=== PATIENT | female | born 1955 | race Caucasian/White ===

== ENCOUNTER 2022-02-27 08:58 | Inpatient (IN) ==
--- NOTE | 2022-02-12 11:25 | PAT Medication Instructions ---
Medication Instructions Date of Service February 12, 2022 Home Medications acetaminophen 500 mg tablet 1,000 mg PO BID albuterol sulfate 90 mcg/actuation aerosol inhaler 2 puff INHALATION Q6H PRN ascorbic acid (vitamin C) 2,000 mg tablet,extended release 2,000 mg PO QAM aspirin 81 mg tablet,delayed release (Enteric Coated Aspirin) 81 mg PO QAM calcium carbonate 600 mg calcium (1,500 mg) tablet (Calcium) 1,200 mg PO QAM cholecalciferol (vitamin D3) 125 mcg (5,000 unit) tablet (Vitamin D3) 125 mcg PO QAM cyanocobalamin (vitamin B-12) 1,000 mcg tablet (Vitamin B-12) 1,000 mcg PO QAM ezetimibe 10 mg tablet 10 mg PO QAM fluticasone propionate 50 mcg/actuation nasal spray,suspension (Flonase Allergy Relief) 1 spray INTRANASAL QAM glucosamine sulf dipot chlr,msm,chond 550 mg-C 30 mg-kimberly 1 mg capsule (Glucosamine Chondroitin) 2 cap PO QAM ibandronate 150 mg tablet 150 mg PO MONTHLY lamotrigine 100 mg tablet 100 mg PO QPM lovastatin 40 mg tablet 40 mg PO PM magnesium oxide 400 mg PO QPM montelukast 10 mg tablet 10 mg PO QPM peg 400-propylene glycol (PF) 0.4 %-0.3 % eye drops in a dropperette (Systane (PF)) 1 drp OPHTHALMIC (EYE) BID PRN propranolol 20 mg tablet 20 mg PO QPM propranolol 20 mg tablet 40 mg PO QAM sodium chloride 0.65 % nasal spray aerosol ([place] Saline) 2 spray INTRANASAL DAILY PRN thiamine HCl (vitamin B1) 250 mg tablet (Vitamin B-1) 1,000 mg PO QAM trazodone 50 mg tablet 50 mg PO QPM venlafaxine 150 mg capsule,extended release 24 hr 150 mg PO QAM venlafaxine 75 mg capsule,extended release 24 hr 75 mg PO QAM Continue as directed ibandronate 150 mg tablet 150 mg PO MONTHLY (do not take day of surgery) ASK your prescriber and surgeon aspirin 81 mg tablet,delayed release (Enteric Coated Aspirin) 81 mg PO QAM STOP taking 2 weeks before surgery glucosamine sulf dipot chlr,msm,chond 550 mg-C 30 mg-kimberly 1 mg capsule (Glucosamine Chondroitin) 2 cap PO QAM DO NOT take the morning of surgery ascorbic acid (vitamin C) 2,000 mg tablet,extended release 2,000 mg PO QAM cholecalciferol (vitamin D3) 125 mcg (5,000 unit) tablet (Vitamin D3) 125 mcg PO QAM cyanocobalamin (vitamin B-12) 1,000 mcg tablet (Vitamin B-12) 1,000 mcg PO QAM calcium carbonate 600 mg calcium (1,500 mg) tablet (Calcium) 1,200 mg PO QAM thiamine HCl (vitamin B1) 250 mg tablet (Vitamin B-1) 1,000 mg PO QAM Take morning of surgery With a small sip of water, OTHERWISE NOTHING TO EAT OR DRINK AFTER MIDNIGHT: acetaminophen 500 mg tablet 1,000 mg PO BID(okay to take up to 4 hours prior to surgery if needed) albuterol sulfate 90 mcg/actuation aerosol inhaler 2 puff INHALATION Q6H PRN(use if needed; please bring with you to hospital day of surgery if possible) ezetimibe 10 mg tablet 10 mg PO QAM fluticasone propionate 50 mcg/actuation nasal spray,suspension (Flonase Allergy Relief) 1 spray INTRANASAL QAM peg 400-propylene glycol (PF) 0.4 %-0.3 % eye drops in a dropperette (Systane (PF)) 1 drp OPHTHALMIC (EYE) BID PRN(if needed) propranolol 20 mg tablet 40 mg PO QAM sodium chloride 0.65 % nasal spray aerosol ([place] Saline) 2 spray INTRANASAL DAILY PRN(if needed) venlafaxine 150 mg capsule,extended release 24 hr 150 mg PO QAM venlafaxine 75 mg capsule,extended release 24 hr 75 mg PO QAM Take evening before surgery acetaminophen 500 mg tablet 1,000 mg PO BID(if needed) albuterol sulfate 90 mcg/actuation aerosol inhaler 2 puff INHALATION Q6H PRN(if needed) lamotrigine 100 mg tablet 100 mg PO QPM lovastatin 40 mg tablet 40 mg PO PM magnesium oxide 400 mg PO QPM montelukast 10 mg tablet 10 mg PO QPM peg 400-propylene glycol (PF) 0.4 %-0.3 % eye drops in a dropperette (Systane (PF)) 1 drp OPHTHALMIC (EYE) BID PRN(if needed) propranolol 20 mg tablet 20 mg PO QPM trazodone 50 mg tablet 50 mg PO QPM Other Notes If you have any questions please call us at [phone] or [phone] or [phone] or [phone]
--- NOTE | 2022-02-14 13:50 | Anesthesiology Consultation ---
Date of Service February 14, 2022 Assessment & Plan (1) Encounter for pre-operative examination: - awaiting confirmed EKG. - Pt and daughter report upcoming PCP pre-op appt, 02/22/22. Optimization note completed regarding new dyspnea on exertion, abnormal CXR and hx chronic intermittent involuntary lower extremity movements. Awaiting PCP response. - will attempt to obtain nuclear findings on 2015 stress test. - sister with anesthesia complications-no additional details of complications recalled by pt. She plans to see if other family members recall any details. - COVID screening: Per assessment on 02/14/2022: Travel screen negative, no known COVID-19 positive contacts or current COVID-19 related symptoms in past 2 weeks. Surgeon arranging preop COVID testing, scheduled 02/23/2022. Awaiting results. Chart Review Chart Review: Pending: Refer to Additional Notes / Consult section and Patient seen in Pre Admission Testing Teaching & Discussion Pre-Anesthesia Teaching/Discussion Notes: Instructed NPO after midnight before surgery, except medications with 15 cc of water. Medication instructions provided according to the PAT guidelines. History Surgery Operation Date: 02/27/22 12:25 Proposed Procedures p L4-S1 Decompression and Fusion, Spinal Cord Monitoring - Margarito Aldridge, Height/Weight Height: 5 ft 2.5 in Weight: 81 kg Allergies Allergy/AdvReac Type Severity Reaction Status Date / Time amoxicillin [From Augmentin] Allergy Unknown Unknown Verified 02/09/22 14:39 clavulanic acid Allergy Unknown Unknown Verified 02/09/22 14:39 [From Augmentin] aspirin AdvReac Mild abdominal Verified 02/09/22 14:39 discomfort Medications Home Medications Medication Instructions Recorded Confirmed Last Taken acetaminophen 500 mg tablet 1,000 mg PO BID 02/09/22 02/09/22 Unknown albuterol sulfate 90 mcg/actuation 2 puff INHALATION Q6H PRN 02/09/22 02/09/22 Unknown aerosol inhaler ascorbic acid (vitamin C) 2,000 mg 2,000 mg PO QAM 02/09/22 02/09/22 Unknown tablet,extended release aspirin 81 mg tablet,delayed 81 mg PO QAM 02/09/22 02/09/22 Unknown release (Enteric Coated Aspirin) calcium carbonate 600 mg calcium 1,200 mg PO QAM 02/09/22 02/09/22 Unknown (1,500 mg) tablet (Calcium) cholecalciferol (vitamin D3) 125 125 mcg PO QAM 02/09/22 02/09/22 Unknown mcg (5,000 unit) tablet (Vitamin D3) cyanocobalamin (vitamin B-12) 1,000 mcg PO QAM 02/09/22 02/09/22 Unknown 1,000 mcg tablet (Vitamin B-12) ezetimibe 10 mg tablet 10 mg PO QAM 02/09/22 02/09/22 Unknown fluticasone propionate 50 1 spray INTRANASAL QAM 02/09/22 02/09/22 Unknown mcg/actuation nasal spray,suspension (Flonase Allergy Relief) glucosamine sulf dipot 2 cap PO QAM 02/09/22 02/09/22 Unknown chlr,msm,chond 550 mg-C 30 mg-kimberly 1 mg capsule (Glucosamine Chondroitin) ibandronate 150 mg tablet 150 mg PO MONTHLY 02/09/22 02/09/22 Unknown lamotrigine 100 mg tablet 100 mg PO QPM 02/09/22 02/09/22 Unknown lovastatin 40 mg tablet 40 mg PO PM 02/09/22 02/09/22 Unknown magnesium oxide 400 mg PO QPM 02/09/22 02/09/22 Unknown montelukast 10 mg tablet 10 mg PO QPM 02/09/22 02/09/22 Unknown peg 400-propylene glycol (PF) 0.4 1 drp OPHTHALMIC (EYE) BID PRN 02/09/22 02/09/22 Unknown %-0.3 % eye drops in a dropperette (Systane (PF)) propranolol 20 mg tablet 20 mg PO QPM 02/09/22 02/09/22 Unknown propranolol 20 mg tablet 40 mg PO QAM 02/09/22 02/09/22 Unknown sodium chloride 0.65 % nasal spray 2 spray INTRANASAL DAILY PRN 02/09/22 02/09/22 Unknown aerosol ([place] Saline) thiamine HCl (vitamin B1) 250 mg 1,000 mg PO QAM 02/09/22 02/09/22 Unknown tablet (Vitamin B-1) trazodone 50 mg tablet 50 mg PO QPM 02/09/22 02/09/22 Unknown venlafaxine 150 mg 150 mg PO QAM 02/09/22 02/09/22 Unknown capsule,extended release 24 hr venlafaxine 75 mg capsule,extended 75 mg PO QAM 02/09/22 02/09/22 Unknown release 24 hr Adults Multivitamin PO DAILY 02/14/22 Unknown biotin PO DAILY 02/14/22 Unknown Past Medical History Medical History (Updated 02/14/22 @ 16:30 by Carolina Amos PA-C) Anxiety Asthma mild, inhaler prn-last used > 6 months ago Chronic back pain Chronic headaches Fatty liver History of COVID-19 diagnosed over a year ago--mild symptoms at the time, no symptoms now Hyperlipidemia Osteoporosis Sleep apnea CPAP-compliant Tremor feet, occ, states also occurred with arms after second cataract surgery; denies altered consciousness during any tremor/abnormal involuntary movement of extremities; daughter assisting pt with hx believes it was attributed to anxiety by PCP Urinary incontinence Varicose veins of both lower extremities Patient denies h/o stroke, seizures, heart attack, heart failure, DM, HTN, blood clots or blood transfusions. Exercise / Class Metabolic Activity II 4-5 Yardwork/Stairs/Walk up hill (occ SOB with 1 FOS x several wks d/t pain per pt; denies CP) Past Surgical History Surgical History History of bilateral cataract extraction History of bilateral tubal ligation History of carpal tunnel release History of section x3 History of colonoscopy History of dilatation and curettage History of tooth extraction partial lower denture/full upper denture Past Anesthesia History No Family Hx of Anesthesia Complications and Other (awareness during cataract procedure) History of PONV No Hx of PONV and Hx of Motion Sickness Social History Smoking Status: Never smoker Do You Dip or Chew Tobacco: No Hx Alcohol Use: No Hx Substance Use: No substance use type: does not use Review of Systems Patient denies chest pain, reflux, fever, chills, cough, wheezing, or palpitations. Physical Exam Vital Signs Vitals BP 115/75 P 61 TEMP 98.5 SP02 95% on RA RESP 17 Physical Short, thick neck Full cervical extension range of motion without pain TMD < 3 finger breaths Mallampati Score 4 Dentition: edentulous, full upper and partial lower denture Lungs: normal respiratory effort. Clear throughout to auscultation, no adventitious breath sounds Cardiac: regular rate and rhythm, no murmurs noted Carotid arteries: negative bruit bilat Lab Results Anesthesia Preop Results Results Anesthesia Widget: WBC 5.49 K/uL (4.8-10.8) 02/14/22 Hgb 12.5 g/dL (12.0-16.0) 02/14/22 Hct 38.4 % (37-47) 02/14/22 Plt 257 K/uL (130-400) 02/14/22 Na 138 mmol/L (136-145) 02/14/22 K 4.1 mmol/L (3.5-5.1) 02/14/22 Cl 103 mmol/L (98-107) 02/14/22 CO2 28 mmol/L (21-32) 02/14/22 BUN 24 mg/dl (6-23) H 02/14/22 Creat 0.88 mg/dl (0.6-1.2) 02/14/22 Glucose Level 87 mg/dl (70-99(Fasting)) 02/14/22 PT 10.7 Seconds (9.0-12.0) 02/14/22 PTT 24.4 Seconds (21.0-31.0) 02/14/22 INR 1.0 (0.9-1.1) 02/14/22 Urine Color Yellow 02/14/22 Urine Appearance Clear (Clear) 02/14/22 Urine pH 6.0 (4.5-7.5) 02/14/22 Urine Specific [place] 1.020 (1.000-1.030) 02/14/22 Urine Protein Negative (Negative) 02/14/22 Urine Glucose (UA) Negative (Negative) 02/14/22 Urine Ketones Negative (Negative) 02/14/22 Urine Blood Negative (Negative) 02/14/22 Urine Nitrite Negative (Negative) 02/14/22 Urine Bilirubin Negative (Negative) 02/14/22 Urine Urobilinogen Negative (Negative) 02/14/22 Urine Leukocyte Esterase Negative (Negative) 02/14/22 Blood Type A Positive 02/14/22 Antibody Screen NEGATIVE 02/14/22 Testing Electrocardiogram Date: 02/14/22 *Unconfirmed* NSR, rate 63 bpm Low voltage QRS Consistent with visual inspection Chest X-Ray Date: 02/14/22 Lung volumes are normal. No pneumothorax or pleural effusion is present. There is no evidence for pulmonary edema. Lingular densities are predominantly linear in configuration and favor atelectasis or scarring. A 2.6 cm slightly nodular lingular density is present. Cardiac size is at upper limits of normal. IMPRESSION: 1. No acute cardiopulmonary findings. 2. 2.6 cm lingular density. This likely reflects atelectasis or scarring. However, a chest CT is recommended to exclude a pulmonary nodule Echocardiogram Date: 03/23/16 EF 55-60% No significant valvular abnormalities Normal LV size, wall thickness and wall motion Stress Test Date: 03/29/16 Cardiolite ECG sinus rhythm and unremarkable
[~2022-02-27 08:58] MED LIST: ACETAMINOPHEN 500 MG TAB PO SCH; CLINDAMYCIN/D5W 600 MG/50 ML BAG **Premixed Bag IV SCH; CeleBREX 200 MG CAP PO SCH; GABAPENTIN 300 MG CAP PO SCH; LR 15ML/HR IV SCH
[2022-02-27] MEDS ORDERED: PROPOFOL IV EMULSION 10 MG/ML 20 ML VIAL IV ONE (09:06)
[2022-02-27] MEDS ORDERED: ROCURONIUM BROMIDE 10 MG/ML 5 ML VIAL IV ONE (09:06)
[2022-02-27] MEDS ORDERED: LIDOCAINE 2% 2 ML VIAL/AMP(20MG/ML) INFIL ONE (09:06)
[2022-02-27] MEDS ORDERED: fentaNYL citrate 100 MCG/2 ML VIAL ONE ×2 (09:09→13:20)
[2022-02-27] MEDS ORDERED: MIDAZOLAM HCL 1 MG/ML 2ML VIAL ONE (09:10)
[2022-02-27] MEDS ORDERED: ONDANSETRON INJ 2 MG/ML 2 ML VIAL IV PRN ×2 (10:26→15:17)
[2022-02-27] MEDS ORDERED: HYDROmorphone INJ 1 MG/ML SYRINGE IV PRN ×2 (10:26→15:17)
[2022-02-27] MEDS ORDERED: ATROPINE SULFATE 0.1 MG/ML 10ML SYR IV PRN (10:26)
[2022-02-27] MEDS ORDERED: ePHEDrine sulfate 50 MG/ML AMP IV PRN (10:26)
--- NOTE | 2022-02-27 10:32 | History & Physical Bridge Note ---
Date of Service February 27, 2022 History & Physical Bridge Note I have examined the patient, reviewed the History & Physical and in the interval since the performance of the History & Physical I have noted the following changes of clinical significance: no changes noted
--- NOTE | 2022-02-27 10:32 | History & Physical Report ---
Date of Service February 27, 2022 Assessment & Plan (1) Neurogenic claudication due to lumbar spinal stenosis: Plan: L4-S1 decompression and fusion History of Present Illness Chief Complaint: Back and bilateral leg pain Primary Care Provider: Latasha Chun This is a 66-year-old female who presents with chronic persistent back and leg pain. Failing course of nonoperative care is here for surgical invention. Allergies Allergy/AdvReac Type Severity Reaction Status Date / Time amoxicillin [From Augmentin] Allergy Unknown Unknown Verified 02/27/22 09:31 clavulanic acid Allergy Unknown Unknown Verified 02/27/22 09:31 [From Augmentin] aspirin AdvReac Mild abdominal Verified 02/27/22 09:31 discomfort Home Medications Medication Instructions Recorded Confirmed Type acetaminophen 500 mg tablet 1,000 mg PO BID 02/09/22 02/27/22 History albuterol sulfate 90 mcg/actuation 2 puff INHALATION Q6H PRN 02/09/22 02/27/22 History aerosol inhaler ascorbic acid (vitamin C) 2,000 mg 2,000 mg PO QAM 02/09/22 02/27/22 History tablet,extended release aspirin 81 mg tablet,delayed 81 mg PO QAM 02/09/22 02/27/22 History release (Enteric Coated Aspirin) calcium carbonate 600 mg calcium 1,200 mg PO QAM 02/09/22 02/27/22 History (1,500 mg) tablet (Calcium) cholecalciferol (vitamin D3) 125 125 mcg PO QAM 02/09/22 02/09/22 History mcg (5,000 unit) tablet (Vitamin D3) cyanocobalamin (vitamin B-12) 1,000 mcg PO QAM 02/09/22 02/09/22 History 1,000 mcg tablet (Vitamin B-12) ezetimibe 10 mg tablet (Zetia) 10 mg PO QAM 02/09/22 02/27/22 History fluticasone propionate 50 1 spray INTRANASAL QAM 02/09/22 02/27/22 History mcg/actuation nasal spray,suspension (Flonase Allergy Relief) glucosamine sulf dipot 2 cap PO QAM 02/09/22 02/27/22 History chlr,msm,chond 550 mg-C 30 mg-kimberly 1 mg capsule (Glucosamine Chondroitin) ibandronate 150 mg tablet 150 mg PO MONTHLY 02/09/22 02/27/22 History lamotrigine 100 mg tablet 100 mg PO QPM 02/09/22 02/27/22 History lovastatin 40 mg tablet 40 mg PO PM 02/09/22 02/27/22 History magnesium oxide 400 mg PO QPM 02/09/22 02/27/22 History montelukast 10 mg tablet 10 mg PO QPM 02/09/22 02/27/22 History peg 400-propylene glycol (PF) 0.4 1 drp OPHTHALMIC (EYE) BID PRN 02/09/22 02/27/22 History %-0.3 % eye drops in a dropperette (Systane (PF)) propranolol 20 mg tablet 20 mg PO QPM 02/09/22 02/27/22 History propranolol 20 mg tablet 40 mg PO QAM 02/09/22 02/27/22 History sodium chloride 0.65 % nasal spray 2 spray INTRANASAL DAILY PRN 02/09/22 02/27/22 History aerosol ([place] Saline) thiamine HCl (vitamin B1) 250 mg 1,000 mg PO QAM 02/09/22 02/27/22 History tablet (Vitamin B-1) trazodone 50 mg tablet 50 mg PO QPM 02/09/22 02/27/22 History venlafaxine 150 mg 150 mg PO QAM 02/09/22 02/27/22 History capsule,extended release 24 hr venlafaxine 75 mg capsule,extended 75 mg PO QAM 02/09/22 02/09/22 History release 24 hr Adults Multivitamin PO DAILY 02/14/22 History biotin 1 tab PO DAILY 02/14/22 02/27/22 History Past Med/Surg History Medical History (Updated 02/27/22 @ 10:32 by Margarito Aldridge DO) Anxiety Asthma mild, inhaler prn-last used > 6 months ago Chronic back pain Chronic headaches Fatty liver History of COVID-19 diagnosed over a year ago--mild symptoms at the time, no symptoms now Hyperlipidemia Osteoporosis Sleep apnea CPAP-compliant Tremor feet, occ, states also occurred with arms after second cataract surgery; denies altered consciousness during any tremor/abnormal involuntary movement of extremities; daughter assisting pt with hx believes it was attributed to anxiety by PCP Urinary incontinence Varicose veins of both lower extremities Surgical History History of bilateral cataract extraction History of bilateral tubal ligation History of carpal tunnel release History of section x3 History of colonoscopy History of dilatation and curettage History of tooth extraction partial lower denture/full upper denture Social History Smoking Status: Never smoker Second Hand Exposure: No; Do You Dip or Chew Tobacco: No; Tobacco Cessation Education Requested by Patient: No Hx Alcohol Use: No Hx Substance Use: No Preferred Language: Maori Communication Ability: Effective Inventory Specialist Required: No Beliefs That Will Affect Care: None Current Living Situation: Alone Other Information That Helps Us Care for You: No Feels Safe at Home: Yes Safety Concerns: Feels Safe At This Time Assistive Devices: Denture - Upper, Denture - Lower, Glasses, Walker and Wheelchair Assistive Devices Comment: partial lower/full upper Physical Exam Physical Exam: Patient is alert and oriented Heart regular rhythm Lungs clear Results & Data Results & Data ([facility]) Vital Signs (Past 12 Hours) Vital Signs Temp Pulse Resp BP Pulse Ox 02/27/22 09:45 36.8 C 68 20 123/78 98
[2022-02-27] MEDS ORDERED: BUPIVACAINE/EPINEPHRINE 0.25% 1:200,000 30 ML VIAL ONE (10:57)
[2022-02-27] MEDS ORDERED: ePHEDrine sulfate 50 MG/ML AMP ONE (12:06)
--- NOTE | 2022-02-27 13:24 | Operative Report ---
Post Operative Report Pre & Post Diagnosis Operation Date: 02/27/22 10:35 Pre-Op Diagnosis: Spinal Stenosis, Lumbar Region with Neurogenic claudication Spondylolisthesis L4-L5 Post-Op Diagnosis: Same I identified the patient and participated in the time-out.: Yes Procedure Operation Date: 02/27/22 10:35 Actual Procedures #1 lumbar decompression bilateral medial facetectomies and foraminotomies L3-4, L4-5 and L5-S1. #2 posterior spinal fusion L4-L5 L5-S1. #3 placement posterior instrumentation L4-L5 L5-S1. #4 interbody fusion L4-L5 L5-S1. #5 placement of Spira 12 x 22 mm cage at L4-5 and 10 x 22 mm cage L5-S1. #6 placement locally harvested morselized autograft in the posterior gutters. #7 placement of I factor combined with V toss in the interbody space and posterior lateral gutters. Surgeon Margarito Aldridge, DO Computed Tomography Technologist Jemma Arroyo Estimated Blood Loss 250 Findings See Below The patient is 5 foot 2 inches tall weighing over 81 kg with a BMI in excess of 32. The patient's body habitus did contribute to significant technical difficulty during her deeper retractors longer instruments in order to perform her procedure. This had at least 50% increased operative time. Specimens None Indications This is a 66-year-old female the presents with above-mentioned diagnosis after failed course of nonoperative care she is here for the above-mentioned procedure. Description of Procedure Patient was met with identified informed consent obtained. Patient was then taken to the operative suite underwent a patient placed in a prone position on the Richie table on top of the Amilcar frame. All bony prominences well-padded eyes inspected to ensure no external pressure placed upon the. This point lumbar spine was prepped and draped in normal sterile fashion. Sharp dissection with the assistance of bradycardia was performed down to and exposing the lamina and transverse processes of L4-L5 and sacral ala bilaterally. From caudal to cephalad fashion complete laminectomy L5 L4 and partial laminectomy of L3 was performed including bilateral medial facetectomies foraminotomies addressing severe spinal stenosis and foraminal disease. Pedicle screws were then placed in L 4 L5 and S1 levels bilaterally with assistance of fluoroscopy the proper sized denice placed. By way of a transforaminal portion radically discectomy of L5-S1 was performed endplates curetted to subcortical bleeding bone and a 10 x 22 mm spiral cage filled with I factor tapped in position. Then proceeded to L for L5 and again by way the transforaminal approach on the right complete discectomy performed endplates curetted to subcortical bleeding bone and a 12 x 22 mm spiral cage filled I factor tapped in position. The rods were then compressed locked into final position bilaterally. The transverse processes of L4-L5 and sacral ala burred to subcortically bone. I factor combined with V toss and locally harvested morselized autograft was placed in the posterior gutters. 15 round WILL drain inserted. The incision was then closed with 1 Vicryl in the fascia 2-0 Vicryl subcutaneously and 4 Monocryl for final skin closure. Steri-Strip sterile dressings placed. Patient waken taken PACU stable condition. Please note spinal cord monitoring was utilized at the procedure no changes noted. Lastly Jemma Arroyo was present at the entire procedure and while the patient positioning complex portions of the surgery and final skin closure. I attest to the content of the Intraoperative Record and any orders documented therein. Any exceptions are noted below.
[2022-02-27] MEDS ORDERED: NEOSTIGMINE METHYLSULFATE 1 MG/ML 10ML VIAL ONE (13:47)
[2022-02-27] MEDS ORDERED: GLYCOPYRROLATE 0.2 MG/ML VIAL ONE (13:47)
--- NOTE | 2022-02-27 13:57 | Fluoroscopy Report ---
FL lumbar spine 2-3V HISTORY: 66 years-old Female L4-S1 DFI chronic low back pain. Status post lumbar spine fusion COMPARISON: Chest radiographs 02/14/2022 TECHNIQUE: 2 spot fluoroscopic images of the lumbar spine were obtained utilizing 22.4 seconds fluoro scopy time FINDINGS: Posterior interbody screw fusion hardware with discectomy changes at L4-S1. The hardware appears inta ct. No unexpected opaque foreign bodies. IMPRESSION: Fluoroscopic assistance as above. ACT 112: Negative or not required by law. The above report was generated using voice recognition software. It may contain grammatical, syntax o r spelling errors. Electronically signed by: Fazal Tobar M.D. 02/27/2022 1:55 PM
[2022-02-27] MEDS: fentaNYL citrate 100 MCG/2 ML VIAL IV PRN ×4 (13:58→14:18)
--- NOTE | 2022-02-27 14:15 | Anesthesiology Progress Note ---
Date of Service February 27, 2022 Anesthesia Post Procedure Vital Signs Vital Signs: Temp Pulse Pulse Resp BP BP Pulse Ox 02/27/22 14:00 63 16 117/74 100 02/27/22 13:50 60 16 121/77 100 02/27/22 13:40 36.7 C 69 16 131/79 99 02/27/22 09:45 36.8 C 68 20 123/78 98 Pain Intensity Bilateral Lower Back: Pain Intensity: 5 Transfer of Care Handoff Completed per policy Notes Mental Status: alert / awake / arousable and participated in evaluation Patient Amnestic to Procedure: Yes Nausea / Vomiting: adequately controlled Pain: adequately controlled Airway Patency, RR, SpO2: stable & adequate BP & HR: stable & adequate Hydration State: stable & adequate Anesthetic Complications: no major complications apparent and Pt Satisfied with anesthetic care
[2022-02-27] MEDS ORDERED: SODIUM CHLORIDE 0.65% NA SOLN 45 ML (OCEAN) PRN (15:17)
[2022-02-27] MEDS ORDERED: PROMETHAZINE HCL 12.5 MG in SODIUM CHLORIDE 0.9% 50 ML IV PRN (15:17)
[2022-02-27] MEDS ORDERED: METOCLOPRAMIDE HCL INJ 5 MG/ML 2 ML VIAL IV PRN (15:17)
[2022-02-27] MEDS ORDERED: ACETAMINOPHEN 1,000 MG/100 ML VIAL IV PRN (15:17)
[2022-02-27] MEDS ORDERED: ONDANSETRON 4 MG OD TAB PO PRN (15:17)
[2022-02-27] MEDS ORDERED: DO NOT ADMINISTER FLU VACCINE PRN (15:17)
[2022-02-27] MEDS ORDERED: FAMOTIDINE 20 MG TAB PO PRN (15:17)
[2022-02-27] MEDS ORDERED: diphenhydrAMINE Capsule 25 MG CAP PO PRN (15:17)
[2022-02-27] MEDS ORDERED: HYDROmorphone INJ 0.5 MG/0.5 ML SYR IV PRN (15:17)
[2022-02-27] MEDS ORDERED: ALUMINUM/MAGNESIUM SUSP 30 ML UDC PO PRN (15:17)
[2022-02-27] MEDS ORDERED: ACETAMINOPHEN 500 MG TAB PO PRN (15:17)
[2022-02-27] MEDS ORDERED: MAGNESIUM HYDROXIDE SUSP 30 ML UDC PO PRN (15:17)
[2022-02-27] MEDS ORDERED: SOD PHOSPHATE/SOD BIPHOSPHATE ENEMA 132 ML BTL PR PRN (15:17)
[2022-02-27] MEDS ORDERED: bisacodyL 10 MG SUPP PR PRN (15:17)
[2022-02-27] MEDS ORDERED: NALOXONE HCL 0.4 MG/1 ML VIAL/CARP IV PRN (15:17)
[2022-02-27] MEDS ORDERED: DO NOT ADMINISTER PNEUMOCOCCAL VACCINE PRN (15:17)
[2022-02-27] MEDS ORDERED: traMADol HCL 50 MG TABLET PO PRN (15:17)
[2022-02-27] MEDS ORDERED: hydrOXYzine HCl 25 MG TAB PO PRN (15:17)
[2022-02-27] MEDS ORDERED: LORazepam 0.5 MG TAB PO PRN (15:17)
[2022-02-27] MEDS ORDERED: LORazepam 2 MG/1 ML VIAL IV PRN (15:17)
[2022-02-27] MEDS ORDERED: ARTIFICIAL TEARS OP PRN (15:33)
[2022-02-27] MEDS: SODIUM CHLORIDE 0.9% 1000ML 1,000 ML IV SCH (16:20)
[2022-02-27] MEDS: CLINDAMYCIN 600 MG in DEXTROSE 5% 50 ML IV SCH (19:52)
[2022-02-27] MEDS: lamoTRIgine 100 MG TAB PO SCH (20:00)
[2022-02-27] MEDS: oxyCODONE HCL IR 5 MG TAB (IMMEDIATE RELEASE) PO PRN (20:00)
[2022-02-27] MEDS: LOVASTATIN 20 MG TAB PO SCH (20:00)
[2022-02-27] MEDS: MAGNESIUM OXIDE 400 MG TAB PO SCH (20:01)
[2022-02-27] MEDS: MONTELUKAST SODIUM 10 MG TABLET PO SCH (20:01)
[2022-02-27] MEDS: PROPRANOLOL HCL 20 MG TAB PO SCH (20:02)
[2022-02-27] MEDS: traZODone HCL 50 MG TAB PO SCH (20:02)
--- NOTE | 2022-02-27 20:31 | Consultation ---
Date of Consultation February 27, 2022 Assessment & Plan (1) Neurogenic claudication due to lumbar spinal stenosis: L4-S1 decompression and fusion pain is fairly managed, laxative to avoid constipation, PT OT as per Ortho recommend, continue current pain managed (2) Hyperlipidemia: Continue statins (3) Asthma: History of allergy, patient takes Singulair, continue Singulair, patient has allergic rhinitis continue Flonase (4) Anxiety: Continue trazodone, continue venlafaxine (5) Tremor: Continue propanolol (6) Chronic headaches: Continue lamotrigine The pain is currently fairly managed, avoid constipation, PT OT as per surgery recommendation History of Present Illness Requesting Physician: Dr. Margarito Aldridge Reason for Consultation: It was a medical consult is comanagement of comorbidities Attending Physician: Margarito Aldridge, History of Present Illness The patient is a 66-year-old female with a past medical history significant for severe back pain for years now after the sled riding injury in her childhood with worsening the past 2 years. That limited her ADLS.SheNeurogenic claudication due to lumbar spinal stenosis: The patient is status post lumbar decompression bilaterally with foraminotomies L3-4, L4-5 and L5-S1. #2 posterior spinal fusion L4-L5 L5-S1. #3 placement posterior instrumentation L4-L5 L5-S1. #4 interbody fusion L4-L5 L5-S1. #5 placement of Spira 12 x 22 mm cage at L4-5 and 10 x 22 mm cage L5-S1. #6 placement locally harvested morselized autograft in the posterior gutters. #7 placement of I factor combined with V toss in the interbody space and posterior lateral gutters. Her other medical problems include hyperlipidemia, migraine allergy and depression Allergies Allergy/AdvReac Type Severity Reaction Status Date / Time amoxicillin [From Augmentin] Allergy Unknown Unknown Verified 02/27/22 09:31 clavulanic acid Allergy Unknown Unknown Verified 02/27/22 09:31 [From Augmentin] aspirin AdvReac Mild abdominal Verified 02/27/22 09:31 discomfort Home Medications Medication Instructions Recorded Confirmed Type acetaminophen 500 mg tablet 1,000 mg PO BID 02/09/22 02/27/22 History albuterol sulfate 90 mcg/actuation 2 puff INHALATION Q6H PRN 02/09/22 02/27/22 History aerosol inhaler ascorbic acid (vitamin C) 2,000 mg 2,000 mg PO QAM 02/09/22 02/27/22 History tablet,extended release aspirin 81 mg tablet,delayed 81 mg PO QAM 02/09/22 02/27/22 History release (Enteric Coated Aspirin) calcium carbonate 600 mg calcium 1,200 mg PO QAM 02/09/22 02/27/22 History (1,500 mg) tablet (Calcium) cholecalciferol (vitamin D3) 125 125 mcg PO QAM 02/09/22 02/09/22 History mcg (5,000 unit) tablet (Vitamin D3) cyanocobalamin (vitamin B-12) 1,000 mcg PO QAM 02/09/22 02/09/22 History 1,000 mcg tablet (Vitamin B-12) ezetimibe 10 mg tablet (Zetia) 10 mg PO QAM 02/09/22 02/27/22 History fluticasone propionate 50 1 spray INTRANASAL QAM 02/09/22 02/27/22 History mcg/actuation nasal spray,suspension (Flonase Allergy Relief) glucosamine sulf dipot 2 cap PO QAM 02/09/22 02/27/22 History chlr,msm,chond 550 mg-C 30 mg-kimberly 1 mg capsule (Glucosamine Chondroitin) ibandronate 150 mg tablet 150 mg PO MONTHLY 02/09/22 02/27/22 History lamotrigine 100 mg tablet 100 mg PO QPM 02/09/22 02/27/22 History lovastatin 40 mg tablet 40 mg PO PM 02/09/22 02/27/22 History magnesium oxide 400 mg PO QPM 02/09/22 02/27/22 History montelukast 10 mg tablet 10 mg PO QPM 02/09/22 02/27/22 History peg 400-propylene glycol (PF) 0.4 1 drp OPHTHALMIC (EYE) BID PRN 02/09/22 02/27/22 History %-0.3 % eye drops in a dropperette (Systane (PF)) propranolol 20 mg tablet 20 mg PO QPM 02/09/22 02/27/22 History propranolol 20 mg tablet 40 mg PO QAM 02/09/22 02/27/22 History sodium chloride 0.65 % nasal spray 2 spray INTRANASAL DAILY PRN 02/09/22 02/27/22 History aerosol ([place] Saline) thiamine HCl (vitamin B1) 250 mg 1,000 mg PO QAM 02/09/22 02/27/22 History tablet (Vitamin B-1) trazodone 50 mg tablet 50 mg PO QPM 02/09/22 02/27/22 History venlafaxine 150 mg 150 mg PO QAM 02/09/22 02/27/22 History capsule,extended release 24 hr venlafaxine 75 mg capsule,extended 75 mg PO QAM 02/09/22 02/09/22 History release 24 hr Adults Multivitamin PO DAILY 02/14/22 History biotin 1 tab PO DAILY 02/14/22 02/27/22 History Patient History Medical History (Updated 02/27/22 @ 20:28 by Erasto Walker MD) Anxiety Asthma mild, inhaler prn-last used > 6 months ago Chronic back pain Chronic headaches Fatty liver History of COVID-19 diagnosed over a year ago--mild symptoms at the time, no symptoms now Hyperlipidemia Osteoporosis Sleep apnea CPAP-compliant Tremor feet, occ, states also occurred with arms after second cataract surgery; ana es altered consciousness during any tremor/abnormal involuntary movement of extremities; daughter assisting pt with hx believes it was attributed to anxiety by PCP Urinary incontinence Varicose veins of both lower extremities Surgical History History of bilateral cataract extraction History of bilateral tubal ligation History of carpal tunnel release History of section x3 History of colonoscopy History of dilatation and curettage History of tooth extraction partial lower denture/full upper denture Social History Smoking Status: Never smoker Second Hand Exposure: No; Do You Dip or Chew Tobacco: No; Tobacco Cessation Education Requested by Patient: No Hx Alcohol Use: No Hx Substance Use: No Preferred Language: Dominican Communication Ability: Effective It Security Specialist Required: No Beliefs That Will Affect Care: None Current Living Situation: Alone Other Information That Helps Us Care for You: No Feels Safe at Home: Yes Safety Concerns: Feels Safe At This Time Assistive Devices: Denture - Upper, Denture - Lower, Glasses, Walker and Wheelchair Assistive Devices Comment: partial lower/full upper Review of Systems Review of Systems: General: No malaise no weakness Neck: No tenderness no pain HEENT: No eye discharge no ear discharge Chest: No chest pain, no palpitation GI: Not distended, no nausea no vomiting Extremities: No edema no tenderness Neurology: No headache no weakness Psychiatric: No depression no anxiety Physical Exam Physical Exam: Patient is alert and oriented Heart regular rhythm Lungs clear Constitutional: + obese ENMT: Mouth: + TMJ abnormality, + dentition abnormality and + dentures (Upper) Mallampati Class: II Neck: + thick neck Respiratory: normal respiratory effort Auscultation: lungs clear to auscultation bilaterally Cardiovascular: Rate/Rhythm: regular rate and regular rhythm Musculoskeletal: Spine: normal cervical ROM and no pain with cervical ROM Neurologic: moves all extremities Psychiatric: Orientation: alert and oriented x 3 Results & Data ([facility]) Vital Signs (Past 12 Hours) Vital Signs Temp Pulse Pulse Resp BP BP Pulse Ox 02/27/22 19:22 36.7 C 90 20 120/73 93 02/27/22 18:04 36.6 C 84 18 104/81 94 02/27/22 17:08 36.3 C L 74 18 116/72 94 02/27/22 16:22 36.6 C 73 18 120/75 96 02/27/22 15:35 36.6 C 75 18 120/75 95 02/27/22 15:20 36.6 C 71 18 117/75 96 02/27/22 15:17 36.5 C 70 108/71 93 02/27/22 14:50 70 16 128/69 96 02/27/22 14:40 36.8 C 76 16 103/52 L 96 02/27/22 14:30 62 19 109/58 L 97 02/27/22 14:20 59 L 12 110/61 100 02/27/22 14:10 61 16 128/79 100 02/27/22 14:00 63 16 117/74 100 02/27/22 13:50 60 16 121/77 100 02/27/22 13:40 36.7 C 69 16 131/79 99 02/27/22 09:45 36.8 C 68 20 123/78 98 PG Care Time/CCT Total # of Minutes Spent Total Time Spent with Patient: Total time spent is greater than 50% in coordination of care (as documented) at patient's floor/unit and/or counseling patient: Coding Level of Care Code 81511 Inpt Consult Level 2 Diagnoses Neurogenic claudication due to lumbar spinal stenosis M48.062 Hyperlipidemia E78.5 Asthma J45.909 Anxiety F41.9 Tremor R25.1 Chronic headaches R51.9; G89.29
[2022-02-27] MEDS: DOCUSATE SODIUM/SENNA 50/8.6MG TAB PO SCH (21:26)
[2022-02-28] MEDS: SODIUM CHLORIDE 0.9% 1000ML 1,000 ML IV SCH (02:45)
[2022-02-28] MEDS: CLINDAMYCIN 600 MG in DEXTROSE 5% 50 ML IV SCH (03:25)
[2022-02-28] MEDS: POLYETHYLENE (MIRALAX) 17 GM PACK PO SCH ×3 (06:26→18:03)
[2022-02-28 07:12] LABS: Hematocrit (blood only) 32.6 % (37-47); Hemoglobin 10.7 g/dL (12.0-16.0); Immature Granulocytes # (auto) 0.03 K/uL (0.00-0.02); Immature Granulocytes % (auto) 0.3 %; Lymphocytes # (auto) 1.15 K/uL (1.2-3.4); Lymphocytes % (auto) 12.1 %; Mean Corpuscular Hemoglobin 32.4 pg (25-34); Mean Corpuscular Hgb Conc 32.8 g/dL (32-36); Mean Corpuscular Volume 98.8 fL (80-100); Mean Platelet Volume 9.7 fL (7.4-10.4); Monocytes # (auto) 0.64 K/uL (0.11-0.59); Monocytes % (auto) 6.7 %; Neutrophils # (auto) 7.72 K/uL (1.4-6.5); Neutrophils % (auto) 80.9 %; Platelet Count 202 K/uL (130-400); RDW Coefficient of Variation 14.4 % (11.5-14.5); RDW Standard Deviation 51.7 fL (36.4-46.3); White Blood Count 9.54 K/uL (4.8-10.8)
[2022-02-28 07:48] LABS: BUN Creatinine Ratio 19.2 (10-20); Calcium 8.6 mg/dl (8.5-10.1); Creatinine Clr Calc Pharmacy 76.8 ml/min; Est GFR (African American) 100.2 ml/min; Est GFR (Non-African American) 86.4 ml/min; Potassium 4.2 mmol/L (3.5-5.1)
[2022-02-28] MEDS: ASCORBIC ACID 500 MG TAB PO SCH (07:56)
[2022-02-28] MEDS: ASPIRIN 81 MG ECTAB PO SCH (07:57)
[2022-02-28] MEDS: CALCIUM CARBONATE 1250MG TAB PO SCH (07:58)
[2022-02-28] MEDS: EZETIMIBE 10 MG TABLET PO SCH (07:58)
[2022-02-28] MEDS: dexAMETHasone 6 MG in SYRINGE 0 ML IV SCH (07:58)
[2022-02-28] MEDS: CHOLECALCIFEROL 5,000 UNITS 125 MCG TAB PO SCH (07:58)
[2022-02-28] MEDS: CYANOCOBALAMIN (B-12) 500 MCG TABLET PO SCH (07:58)
[2022-02-28] MEDS: VENLAFAXINE HCL XR 150 MG CAPXR PO SCH (07:59)
[2022-02-28] MEDS: VENLAFAXINE HCL XR 75 MG CAPXR PO SCH (07:59)
[2022-02-28] MEDS: FLUTICASONE PROPIONATE NA SPR 16 GM BTL SCH (07:59)
[2022-02-28] MEDS: THIAMINE HCL 100 MG TAB PO SCH (07:59)
[2022-02-28] MEDS ORDERED: NON-FORMULARY MEDICATION (Biotin 1 TAB) PO SCH (09:00)
[2022-02-28] MEDS: PROPRANOLOL HCL 20 MG TAB PO SCH ×2 (09:23→21:13)
[2022-02-28] MEDS: oxyCODONE HCL IR 5 MG TAB (IMMEDIATE RELEASE) PO PRN ×2 (11:07→19:35)
--- NOTE | 2022-02-28 12:07 | Hospitalist Progress Note ---
Date of Service February 28, 2022 Assessment & Plan (1) Neurogenic claudication due to lumbar spinal stenosis: Plan: Status post L4-S1 decompression and fusion 02/27/2022 Pain adequately controlled Pain, PT/OT, activity recommendations per primary team (2) Hyperlipidemia: Plan: Continue Zetia, lovastatin - BSG 140, A1c pending. Prior fasting BSG normal (3) Asthma: Plan: History of allergy, patient takes Singulair, continue Singulair, patient has allergic rhinitis continue Flonase No wheezing, breathing at baseline time of assessment. No hypoxia. Follow clinically (4) Anxiety: Plan: Continue trazodone, continue venlafaxine (5) Tremor: Plan: Continue propanolol (6) Chronic headaches: Plan: Continue lamotrigine Plan: Doing well 02/28. Hemoglobin 10.7, creatinine remains less than 1. Activity, DVT prophylaxis, and pain control per primary team, recommend BMP/CBC q. OD. No history of DM with previously normal fasting blood sugar, slightly high blood sugar today. A1c pended, BMP in a.m. Admission and Anticipated Discharge Date Admission Date: February 27, 2022 Subjective Seen at bedside has recently moved from bed to chair with nursing assistance. Reports that she is fatigued following moving to the chair, but is not short of breath and does not have chest pain. Reports her pain is okay at time of bedside assessment. No lightheadedness or dizziness. Drain with serosanguineous material Review of Systems Review of Systems: All systems reviewed & are unremarkable except as noted in Subjective Physical Exam Physical Exam: General: A&Ox3. NAD. Cooperative. HEENT: Atraumatic, normocephalic. Pulm: CTAB A&P. -wheezes, -rales, -rhonchi. Symmetrical chest rise. No increase in work of breathing. No respiratory distress. Cardiac: RRR, -mrg. Radial pulses intact and symmetrical. Abdominal: Nontender, nondistended, soft. BS present. WILL drain in place, draining serosanguineous light material Results & Data Results & Data ([facility]) Vital Signs (Past 12 Hours) Vital Signs Temp Pulse Resp BP BP Pulse Ox 02/28/22 11:52 37.2 C 85 18 107/72 94 02/28/22 09:22 79 107/72 06/08/22 07:49 36.7 C 67 16 94/59 L 96 02/28/22 03:54 36.6 C 78 22 102/62 92 PG Care Time/CCT Total # of Minutes Spent Total Time Spent with Patient: Total time spent is greater than 50% in coordination of care (as documented) at patient's floor/unit and/or counseling patient: Coding Level of Care Code 32195 Subseq Hosp Care Lvl 2 Diagnoses Neurogenic claudication due to lumbar spinal stenosis M48.062 Hyperlipidemia E78.5 Asthma J45.909 Anxiety F41.9 Tremor R25.1 Chronic headaches R51.9; G89.29
--- NOTE | 2022-02-28 12:55 | Orthopedic Progress Note ---
Date of Service February 28, 2022 Assessment & Plan (1) Neurogenic claudication due to lumbar spinal stenosis: Plan: At this time we will continue physical therapy monitor WILL operatively discharge home F this week. Admission and Anticipated Discharge Date Admission Date: February 27, 2022 Subjective Patient's back pain is controlled leg pain improved Physical Exam Physical Exam: Patient is sitting up in bed. He has good strength testing. She appears comfortable. Results & Data ([facility]) Vital Signs (Past 12 Hours) Vital Signs Temp Pulse Resp BP BP Pulse Ox 02/28/22 11:52 37.2 C 85 18 107/72 94 02/28/22 09:22 79 107/72 02/28/22 07:49 36.7 C 67 16 94/59 L 96 02/28/22 03:54 36.6 C 78 22 102/62 92
[2022-02-28] MEDS: MONTELUKAST SODIUM 10 MG TABLET PO SCH (21:11)
[2022-02-28] MEDS: DOCUSATE SODIUM/SENNA 50/8.6MG TAB PO SCH (21:11)
[2022-02-28] MEDS: LOVASTATIN 20 MG TAB PO SCH (21:12)
[2022-02-28] MEDS: lamoTRIgine 100 MG TAB PO SCH (21:12)
[2022-02-28] MEDS: traZODone HCL 50 MG TAB PO SCH (21:13)
[2022-02-28] MEDS: MAGNESIUM OXIDE 400 MG TAB PO SCH (21:13)
[2022-03-01] MEDS: POLYETHYLENE (MIRALAX) 17 GM PACK PO SCH ×4 (01:07→17:51)
[2022-03-01] MEDS: oxyCODONE HCL IR 5 MG TAB (IMMEDIATE RELEASE) PO PRN ×3 (01:08→20:24)
--- NOTE | 2022-03-01 08:25 | Orthopedic Progress Note ---
Date of Service March 01, 2022 Assessment & Plan (1) Neurogenic claudication due to lumbar spinal stenosis: Plan: This time continue physical therapy including attempt at stairs. Will monitor WILL output hopefully discharge home tomorrow this weekend. Admission and Anticipated Discharge Date Admission Date: February 27, 2022 Subjective Patient's back pain is controlled right leg symptoms markedly improved Physical Exam Physical Exam: On exam she is distracted testing. Appears comfortable. Results & Data ([facility]) Vital Signs (Past 12 Hours) Vital Signs Temp Pulse Pulse Resp BP Pulse Ox 03/01/22 07:18 36.5 C 64 18 104/69 93 02/28/22 21:09 36.9 C 69 18 120/81 93
[2022-03-01] MEDS: CHOLECALCIFEROL 5,000 UNITS 125 MCG TAB PO SCH (08:36)
[2022-03-01] MEDS: EZETIMIBE 10 MG TABLET PO SCH (08:36)
[2022-03-01] MEDS: ASCORBIC ACID 500 MG TAB PO SCH (08:36)
[2022-03-01] MEDS: VENLAFAXINE HCL XR 150 MG CAPXR PO SCH (08:36)
[2022-03-01] MEDS: CALCIUM CARBONATE 1250MG TAB PO SCH (08:36)
[2022-03-01] MEDS: FLUTICASONE PROPIONATE NA SPR 16 GM BTL SCH (08:36)
[2022-03-01] MEDS: VENLAFAXINE HCL XR 75 MG CAPXR PO SCH (08:36)
[2022-03-01] MEDS: PROPRANOLOL HCL 20 MG TAB PO SCH ×2 (08:36→20:27)
[2022-03-01] MEDS: THIAMINE HCL 100 MG TAB PO SCH (08:36)
[2022-03-01] MEDS: ASPIRIN 81 MG ECTAB PO SCH (08:36)
[2022-03-01] MEDS: CYANOCOBALAMIN (B-12) 500 MCG TABLET PO SCH (08:36)
[2022-03-01] MEDS: dexAMETHasone 6 MG in SYRINGE 0 ML IV SCH (08:36)
[2022-03-01 08:44] LABS: BUN Creatinine Ratio 22.9 (10-20); Calcium 8.9 mg/dl (8.5-10.1); Creatinine Clr Calc Pharmacy 67.6 ml/min; Est GFR (African American) 85.8 ml/min
[2022-03-01 09:37] LABS: Estimated Average Glucose 143 mg/dl; Hemoglobin A1C 6.6 % (4.5-5.6)
[2022-03-01] MEDS: DOCUSATE SODIUM/SENNA 50/8.6MG TAB PO SCH (20:10)
[2022-03-01] MEDS: MONTELUKAST SODIUM 10 MG TABLET PO SCH (20:25)
[2022-03-01] MEDS: lamoTRIgine 100 MG TAB PO SCH (20:26)
[2022-03-01] MEDS: LOVASTATIN 20 MG TAB PO SCH (20:26)
[2022-03-01] MEDS: MAGNESIUM OXIDE 400 MG TAB PO SCH (20:26)
[2022-03-01] MEDS: traZODone HCL 50 MG TAB PO SCH (21:21)
[2022-03-02] MEDS: oxyCODONE HCL IR 5 MG TAB (IMMEDIATE RELEASE) PO PRN (08:21)
[2022-03-02] MEDS: VENLAFAXINE HCL XR 75 MG CAPXR PO SCH (08:23)
[2022-03-02] MEDS: CALCIUM CARBONATE 1250MG TAB PO SCH (08:23)
[2022-03-02] MEDS: EZETIMIBE 10 MG TABLET PO SCH (08:23)
[2022-03-02] MEDS: CYANOCOBALAMIN (B-12) 500 MCG TABLET PO SCH (08:23)
[2022-03-02] MEDS: ASCORBIC ACID 500 MG TAB PO SCH (08:24)
[2022-03-02] MEDS: ASPIRIN 81 MG ECTAB PO SCH (08:24)
[2022-03-02] MEDS: THIAMINE HCL 100 MG TAB PO SCH (08:24)
[2022-03-02] MEDS: CHOLECALCIFEROL 5,000 UNITS 125 MCG TAB PO SCH (08:24)
[2022-03-02] MEDS: dexAMETHasone 6 MG in SYRINGE 0 ML IV SCH ×2 (08:25→09:13)
[2022-03-02] MEDS: VENLAFAXINE HCL XR 150 MG CAPXR PO SCH (08:25)
[2022-03-02] MEDS: FLUTICASONE PROPIONATE NA SPR 16 GM BTL SCH (08:26)
[2022-03-02] MEDS: PROPRANOLOL HCL 20 MG TAB PO SCH (08:26)
--- NOTE | 2022-03-02 10:14 | Discharge Summary ---
Date of Service March 02, 2022 Admission HPI Per Admitting Provider This is a 66-year-old female who presents with chronic persistent back and leg pain. Failing course of nonoperative care is here for surgical invention. Principal Diagnosis Lumbar spinal stenosis with neurogenic claudication Discharge Data Allergies Allergy/AdvReac Type Severity Reaction Status Date / Time amoxicillin [From Augmentin] Allergy Unknown Unknown Verified 02/27/22 09:31 clavulanic acid Allergy Unknown Unknown Verified 02/27/22 09:31 [From Augmentin] aspirin AdvReac Mild abdominal Verified 02/27/22 09:31 discomfort Consultations 02/27/22 15:17 Consult Hospitalist Routine Procedures Performed Operation Date: 02/27/22 10:35 Actual Procedures p L4-S1 Decompression and Fusion, Spinal Cord Monitoring - Margarito Aldridge DO Ordered Studies 02/27/22 10:35 FL lumbar spine 2-3V Routine Hospital Course (1) Neurogenic claudication due to lumbar spinal stenosis: Patient underwent lumbar decompression fusion tolerated this well was taken to orthopedic for postoperative. Postop day 1 she was up and ambulating progressed to postop day #2 on postop day 3 WILL drainage decreased appropriately. She is becoming more independent. Pain was well controlled. Subsequently discharged home. Discharge orders instructions found the chart for further review. Total Time Total Time Spent Total Time Spent (In Minutes): 20 minutes Discharge Plan Discharge Items Patient Disposition: Home - Self-Care Reason For Visit: Spinal Stenosis, Lumbar Region with Neurogenic Cla Discharge Diagnosis: spinal stenosis with neurogenic claudication Activity: As commented below Non-emergency contact: Primary Care Provider Call non-emergency contact if: you have any medication questions Follow-up/Referrals: Latasha Chun D.O. [Primary Care Provider] - Diet: Regular Addtl Attending Provider Instructions: ACTIVITY RECOMMENDATIONS: SELF CARE INSTRUCTIONS AFTER THORACIC/LUMBAR FUSIONS 1. You may walk to your tolerance. It is good exercise for your legs and back. Expect some back and intermittent leg aches and pains. 2. You may perform "counter-top" level activities (make a sandwich, corey with a project, etc.). 3. No bending or lifting of more than 10 pounds or back twisting of any nature (roll like a log when turning in bed). 4. You may ride in a car for 20-30 minutes at a time. No driving until after your first visit with your doctor. 5. Frequent changes of position and restricting sitting to 30 minutes at a time will help limit the amount of back spasms and stiffness you may experience. 6. You may discontinue the use of ambulatory aids (cane, crutches, etc.) once your strength and confidence allow. 7. You may staff submarine warfare officer the shower and let water strike your incision when you arrive home at least once daily. Do not take a tub bath, sit in a hot tub or go into a swimming pool until after your first recheck in the office. SPECIAL CARE INSTRUCTIONS: VERY IMPORTANT TO READ AND REVIEW A. Your surgical incision has been closed with a cosmetic suture under the skin that will dissolve in about 6 weeks. In 14 days, you can use a pair of clean scissors and cut the suture that is left outside of the skin at the ends of your incision. 1. The small skin tapes can be removed 7 days after surgery if they have not fallen off by that point. 2. You may keep the wound open to air as much as possible to promote healing after post-op day number 5 unless told otherwise by your doctor. 3. If you think the wound looks like it is becoming infected (redness or worsening drainage) and/or you are experiencing fever, chill or worsening back pain and muscle spasms, contact the office so that we may evaluate you as soon as possible. B. Complications are uncommon, but please contact us if you have any signs or symptoms of: 1. wound infection (fever higher than 102.5 degrees F, redness, separation of wound, drainage, or increasing pain from the incision) 2. blood clots in legs (pain, swelling, redness and warmth in legs) 3. urinary tract infection (fever higher than 102.5 degrees F, burning upon urination or increased frequency of urination) 4. nerve problems (inability to walk on your toes or heels, numbness, loss of bowel or bladder control) 5. any other symptoms that concern you C. Please call the office at if you have any concerns or questi ons about your operation or recovery. D. No smoking! Smoking drastically decreases the chance of a solid fusion. E. Do not take any anti-inflammatory medications (Indocin, Advil, Motrin, Aspirin, Naprosyn, etc.) as these may inhibit the chance of a solid fusion. Tylenol is okay to take for pain. MANAGING PAIN AFTER SPINAL SURGERY 1. Narcotic medication is intended for short-term use and will be provided for surgical pain. Surgical pain usually lasts for a period of 4-6 weeks. Narcotic medication includes Percocet, Vicodin, Darvocet, Tylenol #3 or Lortab. 2. Longer-term pain is more appropriately treated with non-narcotic medication such as Tylenol ES. 3. Muscle spasm is not appropriately treated with narcotics. Muscle relaxers such as Soma, Flexeril or Skelaxin can be used along with Tylenol ES. 4. Remember that we all live with some "aches and pains". This is not unusual or uncommon after an injury or as we get older. a. Back pain is expected and may include muscle spasms for 4 to 6 weeks after surgery. The pain should gradually improve. If the pain worsens for no apparent reason, please contact the office. b. Intermittent leg pain may also be experienced and should not be concerned about unless it worsens for no apparent reason. If so, please contact the office. 5. We will provide appropriate medication within the normal guidelines of their prescribed use. We will also be very cautious and aware of potential abuse and extended duration of patients' medication needs. a. Pain medications are for your comfort and to assist with sleep and rest so that the tissue can heal. They are not provided in order to return to normal activity and should not be used through the day. To do so or worsening pain at night can result from ongoing tissue damage and development of tolerance to the prescribed medicine. 6. Please allow 2-3 days to process refills. Prescriptions will not be mailed but must be picked up at the office. FOLLOW UP VISIT: Keep your scheduled follow-up appointment. Any questions, please call the office at . Pending Studies at Discharge: No Stand-Alone Forms: My [employer], Smoking Cessation Medications and DC Order Prescriptions: New tramadol 50 mg tablet 50 mg PO Q6H PRN (Reason: pain, moderate) Qty: 30 RF: 0 oxycodone 5 mg tablet 5 mg PO Q6H PRN (Reason: pain, severe) Qty: 30 RF: 0 Continued venlafaxine 75 mg Capsule,Extended Release 24hr 75 mg PO QAM RF: 0 trazodone 50 mg Tablet 50 mg PO QPM RF: 0 lovastatin 40 mg Tablet 40 mg PO PM RF: 0 venlafaxine 150 mg Capsule,Extended Release 24hr 150 mg PO QAM RF: 0 aspirin [Enteric Coated Aspirin] 81 mg Tablet,Delayed Release (Dr/Ec) 81 mg PO QAM RF: 0 acetaminophen 500 mg Tablet 1,000 mg PO BID RF: 0 montelukast 10 mg Tablet 10 mg PO QPM RF: 0 propranolol 20 mg Tablet 40 mg PO QAM RF: 0 propranolol 20 mg Tablet 20 mg PO QPM RF: 0 fluticasone propionate [Flonase Allergy Relief] 50 mcg/actuation [place],Suspension 1 spray INTRANASAL QAM RF: 0 lamotrigine 100 mg Tablet 100 mg PO QPM RF: 0 ezetimibe [Zetia] 10 mg Tablet 10 mg PO QAM RF: 0 [place] Saline 0.65 % Aerosol,[place] 2 spray INTRANASAL DAILY PRN (Reason: Nasal Congestion) RF: 0 Systane (PF) 0.4-0.3 % Dropperette 1 drp OPHTHALMIC (EYE) BID PRN (Reason: Dry Eye(S)) RF: 0 ibandronate 150 mg Tablet 150 mg PO MONTHLY RF: 0 ascorbic acid (vitamin C) 2,000 mg Tablet Extended Release 2,000 mg PO QAM RF: 0 cyanocobalamin (vitamin B-12) [Vitamin B-12] 1,000 mcg Tablet 1,000 mcg PO QAM RF: 0 thiamine HCl (vitamin B1) [Vitamin B-1] 250 mg Tablet 1,000 mg PO QAM RF: 0 cholecalciferol (vitamin D3) [Vitamin D3] 125 mcg (5,000 unit) Tablet 125 mcg PO QAM RF: 0 Glucosamine Chondroitin 550-30-1 mg Capsule 2 cap PO QAM RF: 0 calcium carbonate [Calcium 600] 600 mg calcium (1,500 mg) Tablet 1,200 mg PO QAM RF: 0 magnesium oxide 400 mg magnesium Tablet 400 mg PO QPM RF: 0 albuterol sulfate 90 mcg/actuation Hfa Aerosol Inhaler 2 puff INHALATION Q6H PRN (Reason: Shortness Of Breath) RF: 0 Adults Multivitamin PO DAILY RF: 0 biotin 1 tab PO DAILY RF: 0 Discharge Orders: Discharge Order (Routine); Ordered 06/10/22 Ordered By: Margarito Byrd/Other Patient Handouts: A1C Admission Data Admit Date/Time: 02/27/22 13:29 Attending Provider: Margarito Aldridge Admit Provider: Margarito Aldridge Primary Care Provider: Latasha Chun Other Providers: Tushar Stanley Babak S.
== END 2022-03-02 15:25 | disposition home health service (06) | DRG 455 ==
LOC: ASU 08:58 → 3N 13:29